=== PATIENT | male | born 1950 | race Caucasian/White ===

== ENCOUNTER 2016-10-14 16:37 | Emergency (ER) | payer MEDICARE, MEDICAID ==
[~2016-10-14] VITALS: Ht 177.8 cm; Wt 66.2 kg
[~2016-10-14 16:37] MED LIST: CEPH-460 PO; OMEP20TA PO; TAMS0.4C4 PO
[2016-10-14 16:48] VITALS: BP 110/70; PULSE 91; RESP 16; TEMP 102.1; O2SAT 95
[2016-10-14 17:27] VITALS: BP 110/70; PULSE 91; RESP 17; TEMP 102.1; O2SAT 95
[2016-10-14] MEDS ORDERED: TERA5CAP3 PO (17:32)
--- NOTE | 2016-10-14 17:37 | PD ---
HPI Chief Complaint: Fever Time Seen by Provider: 17:20 Travel History International Travel<30 days: No Contact w/Intl Traveler<30days: No Traveled to known affect area: No History of Present Illness HPI This 66-year-old male says he been feeling sick since Monday. He has been having headache, diffuse myalgias and cough. He did not get a flu shot this year. He has been a smoker and stopped just a few weeks ago. PFSH Past Medical History Cancer: No Diabetes: No Diminished Hearing: Yes GERD: Yes Glaucoma: No Genitourinary: Yes (ENLARGED PROSTATE) Hepatitis: No Hiatal Hernia: No Hypertension: No Immunizations Current: Yes Thyroid Disease: No Tetanus Vaccination: < 5 Years Influenza Vaccination: No Past Surgical History Abdominal Surgery: Yes (double hernia) Other Surgery: Yes (lt shoulder) Social History Alcohol Use: No (FORMER) Tobacco Use: No Substance Use: No Allergies-Medications (Allergen,Severity, Reaction): Coded Allergies: Bee Sting (Verified Allergy, Severe, Swelling, 10/14/16) Reported Meds & Prescriptions Reported Meds & Active Scripts Active Reported Terazosin (Terazosin HCl) 5 Mg Cap 5 Mg PO HS Omeprazole 20 Mg Tab 20 Mg PO DAILY Review of Systems General / Constitutional: Positive: Fever, Chills Eyes: No: Diploplia, Blurred Vision HENT: No: Vertigo Cardiovascular: No: Tachycardia Respiratory: Positive: Cough Gastrointestinal: No: Vomiting, Diarrhea Genitourinary: No: Urgency, Frequency Musculoskeletal: No: Myalgias Physical Exam Narrative GENERAL: Well-developed male SKIN: Warm and dry. HEAD: Atraumatic. Normocephalic. EYES: Pupils equal and round. No scleral icterus. No injection or drainage. ENT: No nasal bleeding or discharge. Mucous membranes pink and moist. NECK: Trachea midline. No JVD. His neck is supple CARDIOVASCULAR: Regular rate and rhythm. No murmur appreciated. RESPIRATORY: No accessory muscle use. There are rales heard at the left base Breath sounds equal bilaterally. GASTROINTESTINAL: Abdomen soft, non-tender, nondistended. Hepatic and splenic margins not palpable. MUSCULOSKELETAL: No obvious deformities. No clubbing. No cyanosis. No edema. NEUROLOGICAL: Awake and alert. No obvious cranial nerve deficits. Motor grossly within normal limits. Normal speech. PSYCHIATRIC: Appropriate mood and affect; insight and judgment normal. Data Data Last Documented VS Vital Signs Date Time Temp Pulse Resp B/P Pulse Ox O2 Delivery O2 Flow Rate FiO2 10/14/16 17:43 97 Room Air 10/14/16 17:27 84 10/14/16 17:27 102.1 17 110/70 Orders Complete Blood Count With Diff (10/14/16 17:32) Comprehensive Metabolic Panel (10/14/16 17:32) Lactic Acid Sepsis Protocol (10/14/16 17:32) Urinalysis - C+S If Indicated (10/14/16 17:32) Influenzae A/B Antigen (10/14/16 17:32) Blood Culture (10/14/16 17:32) Chest, Single Ap (10/14/16 17:32) Iv Access Insert/Monitor (10/14/16 17:32) Oximetry (10/14/16 17:32) Acetaminophen (Tylenol) (10/14/16 17:45) Sodium Chlor 0.9% 1000 Ml Inj (Ns 1000 M (10/14/16 17:45) Sodium Chlor 0.9% 1000 Ml Inj (Ns 1000 M (10/14/16 17:45) Ceftriaxone Inj (Rocephin Inj) (10/14/16 18:30) Labs Laboratory Tests Test 10/14/16 10/14/16 17:30 18:15 White Blood Count 9.1 TH/MM3 Red Blood Count 4.77 MIL/MM3 Hemoglobin 15.4 GM/DL Hematocrit 46.2 % Mean Corpuscular Volume 96.9 FL Mean Corpuscular Hemoglobin 32.2 PG Mean Corpuscular Hemoglobin 33.2 % Concent Red Cell Distribution Width 12.5 % Platelet Count 176 TH/MM3 Mean Platelet Volume 8.7 FL Neutrophils (%) (Auto) 83.3 % Lymphocytes (%) (Auto) 11.9 % Monocytes (%) (Auto) 4.5 % Eosinophils (%) (Auto) 0.0 % Basophils (%) (Auto) 0.3 % Neutrophils # (Auto) 7.6 TH/MM3 Lymphocytes # (Auto) 1.1 TH/MM3 Monocytes # (Auto) 0.4 TH/MM3 Eosinophils # (Auto) 0.0 TH/MM3 Basophils # (Auto) 0.0 TH/MM3 CBC Comment DIFF FINAL Differential Comment Sodium Level 131 MEQ/L Potassium Level 3.8 MEQ/L Chloride Level 96 MEQ/L Carbon Dioxide Level 25.0 MEQ/L Anion Gap 10 MEQ/L Blood Urea Nitrogen 12 MG/DL Creatinine 0.95 MG/DL Estimat Glomerular Filtration 80 ML/MIN Rate Random Glucose 109 MG/DL Calcium Level 8.8 MG/DL Total Bilirubin 0.6 MG/DL Aspartate Amino Transf 38 U/L (AST/SGOT) Alanine Aminotransferase 44 U/L (ALT/SGPT) Alkaline Phosphatase 96 U/L Total Protein 8.2 GM/DL Albumin 3.7 GM/DL Lactic Acid Level 0.8 mmol/L [facility] Medical Decision Making Medical Screen Exam Complete: Yes Emergency Medical Condition: Yes Medical Record Reviewed: Yes Differential Diagnosis Differential includes pneumonia, influenza, upper respiratory infection Narrative Course Tests for influenza is negative. Chest x-rays read as negative. On examination that did appear to be an area are suspicious for pneumonia and I am going to treat the patient on that basis. He has been given Rocephin and will be released with prescription for Augmentin 500 3 times a day. My impression is that this gentleman may have pneumonia which is not yet apparent on this x- ray Diagnosis Primary Impression: Pneumonia Qualified Code: J18.1 - Pneumonia of left lower lobe due to infectious organism Additional Instructions: Take Tylenol or Motrin for fever Scripts Amoxicillin-Clavulanate (Augmentin)500-125 mg Vxa161 Mg PO Q8H #21 TAB Ref 0 Prov:Alex Bar MD 10/14/16 Disposition: 01 DISCHARGE HOME Condition: Stable Alex Bar MD Oct 14, 2016 17:37
[2016-10-14 17:43] VITALS: O2SAT 97
[2016-10-14] MEDS ORDERED: ACETAMINOPHEN 325 MG TAB PO ONE (17:45)
[2016-10-14] MEDS ORDERED: SODIUM CHLOR 0.9% 1000 ML INJ 1,000 ML IV ONE ×2 (17:45)
[2016-10-14 17:56] LABS: AUTOMATED NEUTROPHIL # 7.6 TH/MM3 (1.8-7.7); BASOPHIL % 0.3 % (0.0-2.0); HEMATOCRIT 46.2 % (39.0-51.0); LYMPH % 11.9 % (9.0-44.0); LYMPHOCYTE # 1.1 TH/MM3 (1.0-4.8); MEAN CELL VOLUME 96.9 FL (80.0-100.0); MEAN CORPUSCULAR HEMOGLOBIN 32.2 PG (27.0-34.0); MEAN CORPUSCULAR HGB CONC 33.2 % (32.0-36.0); MONO % 4.5 % (0.0-8.0); NEUT % 83.3 % (16.0-70.0); PLATELET COUNT 176 TH/MM3 (150-450); RED BLOOD COUNT 4.77 MIL/MM3 (4.50-5.90); RED CELL DISTRIBUTION WIDTH 12.5 % (11.6-17.2); WHITE BLOOD COUNT 9.1 TH/MM3 (4.0-11.0)
[2016-10-14 17:58] LABS: HEMO FLAGS DIFF FINAL
[2016-10-14 18:07] LABS: CHLORIDE 96 MEQ/L (98-107); POTASSIUM 3.8 MEQ/L (3.5-5.1); SODIUM (NA) 131 MEQ/L (136-145)
[2016-10-14 18:10] LABS: ANION GAP 10 MEQ/L (5-15); BLOOD UREA NITROGEN 12 MG/DL (7-18)
[2016-10-14 18:13] LABS: ALT (GPT) 44 U/L (12-78); AST (GOT) 38 U/L (15-37); GLOMERULAR FILTRATION RATE 80 ML/MIN (>89)
--- NOTE | 2016-10-14 18:14 | RADHPO ---
EXAM DATE/TIME: 10/14/2016 17:57 [place] COMPARISON: No previous studies available for comparison. INDICATIONS : Fever. MEDICAL HISTORY : None. SURGICAL HISTORY : None. ENCOUNTER: Initial ACUITY: 2 days PAIN SCORE: 0/10 LOCATION: Bilateral chest FINDINGS: A single view of the chest demonstrates the lungs to be symmetrically aerated without evidence of mas s, infiltrate or effusion. The cardiomediastinal contours are unremarkable. Osseous structures are intact. CONCLUSION: No evidence of acute cardiopulmonary disease. Winston Rich MD on October 14, 2016 at 18:13 Board Certified Radiologist. This report was verified electronically.
[2016-10-14 18:15] LABS: TOTAL BILIRUBIN ADULT 0.6 MG/DL (0.2-1.0)
[2016-10-14 18:17] LABS: ALKALINE PHOSPHATASE 96 U/L (45-117)
[2016-10-14] MEDS ORDERED: cefTRIAXone INJ 1,000 MG in SODIUM CHLORIDE 0.9% INJ 100 ML IV ONE (18:30)
[2016-10-14 18:45] VITALS: TEMP 100.4
[2016-10-14] MEDS ORDERED: AUGM500T7 PO (18:48)
[2016-10-14 19:07] VITALS: BP 99/60; PULSE 74; RESP 20; TEMP 99.4; O2SAT 95
== END 2016-10-14 20:07 | disposition home or self-care (01) ==
LOC: PHED 16:37
DX: J18.1 Lobar pneumonia, unspecified organism (principal)
CPT/HCPCS: 71010; 80053; 83605; 85025; 87040; 87804; 96361; 96365; 99284; J0696; J7030

== ENCOUNTER 2017-05-06 14:22 | Emergency (ER) | payer MEDICAID, MEDICARE ==
[~2017-05-06] VITALS: Ht 180.3 cm; Wt 67.0 kg
[~2017-05-06 14:22] MED LIST changes: +AUGM500T7 PO; -CEPH-460 PO; -TAMS0.4C4 PO; +TERA5CAP3 PO
[2017-05-06 14:27] VITALS: BP 131/74; PULSE 74; RESP 16; TEMP 99.4; O2SAT 95
--- NOTE | 2017-05-06 17:40 | PD ---
HPI Chief Complaint: Foreign Body Time Seen by Provider: 17:13 Travel History International Travel<30 days: No Contact w/Intl Traveler<30days: No Traveled to known affect area: No History of Present Illness HPI 66-year-old male presents emergency Department with injuries to the right third and fourth digits from a cactus. Patient states he was moving some trash out of his truck bed when he swung his hand backwards hitting a long foreign cactus at his home. Patient continues to have multiple foreign bodies/ splinters. Patient has minimal pain and is unable to get them out himself. He is allergic to bees. He has no other drug allergies. PFSH Past Medical History Cancer: No Diabetes: No Diminished Hearing: Yes GERD: Yes Glaucoma: No Genitourinary: Yes (ENLARGED PROSTATE) Hepatitis: No Hiatal Hernia: No Hypertension: No Immunizations Current: Yes Thyroid Disease: No Past Surgical History Abdominal Surgery: Yes (double hernia) Other Surgery: Yes (lt shoulder) Social History Alcohol Use: No (FORMER) Tobacco Use: No Substance Use: No Allergies-Medications (Allergen,Severity, Reaction): Coded Allergies: bee venom protein (honey bee) (Unverified Allergy, Severe, Swelling, ) Reported Meds & Prescriptions Reported Meds & Active Scripts Active Reported Terazosin (Terazosin HCl) 5 Mg Cap 5 Mg PO HS Omeprazole 20 Mg Tab 20 Mg PO DAILY Review of Systems Except as stated in HPI: all other systems reviewed are Neg General / Constitutional: No: Fever Eyes: No: Visual changes HENT: No: Headaches Cardiovascular: No: Chest Pain or Discomfort Respiratory: No: Shortness of Breath Gastrointestinal: No: Abdominal Pain Genitourinary: No: Dysuria Musculoskeletal: No: Pain Skin: No Rash Neurologic: No: Weakness Psychiatric: No: Depression Endocrine: No: Polydipsia Hematologic/Lymphatic: No: Easy Bruising Physical Exam Narrative GENERAL: Patient appears no acute distress. SKIN: Warm and dry. Patient has 4 obvious embedded splinters to the right hand , 2 in the third digit and 2 in the fourth digit. No bleeding is noted. HEAD: Atraumatic. Normocephalic. EYES: Pupils equal and round. No scleral icterus. No injection or drainage. ENT: No nasal bleeding or discharge. Mucous membranes pink and moist. NECK: Trachea midline. No JVD. CARDIOVASCULAR: Regular rate and rhythm. RESPIRATORY: No accessory muscle use. Clear to auscultation. Breath sounds equal bilaterally. GASTROINTESTINAL: Abdomen soft, non-tender, nondistended. Hepatic and splenic margins not palpable. MUSCULOSKELETAL: Extremities without clubbing, cyanosis, or edema. No obvious deformities. NEUROLOGICAL: Awake and alert. No obvious cranial nerve deficits. Motor grossly within normal limits. Five out of 5 muscle strength in the arms and legs. Normal speech. PSYCHIATRIC: Appropriate mood and affect; insight and judgment normal. Data Data Last Documented VS Vital Signs Date Time Temp Pulse Resp B/P (MAP) Pulse Ox O2 Delivery O2 Flow Rate FiO2 05/06/17 14:27 99.4 74 16 131/74 (93) 95 Room Air MDM Medical Decision Making Medical Screen Exam Complete: Yes Emergency Medical Condition: Yes Differential Diagnosis Right third and fourth finger injuries. Puncture wound. Foreign bodies. Foreign body removal. Narrative Course Patient is medically stable at time of exam. A total of 4 splinters were removed 2 from the third right digit 2 from the fourth right digit without difficulty. No further medical treatment is felt warranted at this time. Patient is discharged home and will follow up as needed. Procedures Procedure Narrative Area was washed with soapy water and saline, and for splinters were removed with pincher forceps and #11 blade without need for deep or open incision. No anesthetic was necessary. No bandaging was necessary. Patient to follow up as needed. Diagnosis Primary Impression: Splinter in skin Referrals: Primary Care Physician Patient Instructions: General Instructions, Soft Tissue Foreign Body (ED) Additional Instructions: A total of 4 splinters were removed 2 from the third right digit 2 from the fourth right digit without difficulty. No further medical treatment is felt warranted at this time. Patient is discharged home and will follow up as needed. Med/Other Pt SpecificInfo: Wound Care Disposition: DISCHARGE HOME Condition: Stable Hugo Ennis May 06, 2017 17:40
== END 2017-05-06 18:52 | disposition home or self-care (01) ==
LOC: PHED 14:22 → PHEFT 18:52
DX: S60.454A Superficial foreign body of right ring finger, initial encounter (principal); S60.456A Superficial foreign body of right little finger, initial encounter; W45.8XXA Other foreign body or object entering through skin, initial encounter; H91.90 Unspecified hearing loss, unspecified ear; N40.0 Benign prostatic hyperplasia without lower urinary tract symptoms
CPT/HCPCS: 99282